=== PATIENT | female | born 1990 | race Caucasian/White ===

== ENCOUNTER 2019-12-13 10:34 | Inpatient (IN) | payer OTHER ==
[~2019-12-13] VITALS: Ht 162.6 cm; Wt 97.1 kg
[~2019-12-13 10:34] MED LIST: METHYLERGONOVINE MALEATE 0.2 MG/ML VIAL IM ONE
[2019-12-13] MEDS ORDERED: RINGERS SOLUTION,LACTATED 1,000 ML IV ONE ×2 (10:41→11:30)
[2019-12-13] MEDS ORDERED: PREN-217 PO (10:44)
[2019-12-13] MEDS ORDERED: CITRIC ACID/SODIUM CITRATE 30 ML SOLUTION UDCUP PO ONE (10:45)
[2019-12-13] MEDS ORDERED: METOCLOPRAMIDE HCL 5 MG/ML 2 ML VIAL IVP ONE (10:45)
[2019-12-13] MEDS ORDERED: [UNRECOGNIZED DRUG - OTHER] PO (10:46)
[2019-12-13 11:40] LABS: BASOPHILS % (AUTO) 0.4 % (0.0-2.0); EOSINOPHILS % (AUTO) 0.5 % (1.0-6.0); HEMATOCRIT 32.4 % (36-46); HEMOGLOBIN 11.2 g/dL (12.0-16.0); LYMPHOCYTES # (AUTO) 1.8 K/uL (1.0-4.8); LYMPHOCYTES % (AUTO) 17.8 % (22.0-44.0); MEAN CORPUSCULAR HGB CONC 34.6 G/dL (31.0-37.0); MEAN CORPUSCULAR VOLUME 87 fL (80-100); MONOCYTES # (AUTO) 0.5 K/uL (0.1-1.0); NEUTROPHILS # (AUTO) 7.6 K/uL (1.8-7.7); NEUTROPHILS % (AUTO) 76.3 % (40.0-70.0); PLATELET COUNT (AUTO)-OB 207 K/uL (150-450); RED BLOOD CELL COUNT(AUTO) 3.74 MIL/uL (4.00-5.20); RED CELL DISTRIBUTION WIDTH 13.4 % (11.5-14.5)
[2019-12-13] MEDS ORDERED: DEXAMETHASONE SOD PHOS 4 MG/ML VIAL IVP ONE (12:00)
[2019-12-13] MEDS ORDERED: LIDOCAINE/PF 2% 5 ML VIAL INJ ONE (12:00)
[2019-12-13] MEDS ORDERED: ONDANSETRON HCL 4 MG/2 ML VIAL IVP ONE (12:00)
[2019-12-13] MEDS ORDERED: KETOROLAC TROMETHAMINE 60 MG/2 ML VIAL IM ONE (12:00)
[2019-12-13] MEDS ORDERED: EPHEDrine SULFATE 50 MG/ML VIAL IM ONE (12:00)
[2019-12-13] MEDS ORDERED: MIDAZOLAM HCL 2 MG/2 ML VIAL ONE (12:06)
[2019-12-13] MEDS ORDERED: MORPHINE SULFATE/PF 1 MG/ML 10 ML AMP ONE (12:06)
[2019-12-13] MEDS ORDERED: FentaNYL CITRATE-PF 100 MCG/2 ML VIAL ONE (12:06)
[2019-12-13] MEDS ORDERED: ONDANSETRON HCL 4 MG/2 ML VIAL ONE (12:07)
[2019-12-13] MEDS ORDERED: BUPIVACAINE HCL/DEX-WATER/PF 0.75% 2 ML AMP ONE (12:07)
[2019-12-13] MEDS ORDERED: NALOXONE HCL 0.4 MG/ML VIAL IVP PRN (13:00)
[2019-12-13] MEDS ORDERED: OxyCODONE HCL/ACETAMINOPHEN 5-325 MG TABLET PO PRN ×3 (13:00→13:30)
[2019-12-13] MEDS ORDERED: ONDANSETRON HCL 4 MG/2 ML VIAL IVP PRN (13:00)
[2019-12-13] MEDS ORDERED: DEXTROSE 5%-0.45% SODIUM CHL 1,000 ML IV SCH (13:19)
[2019-12-13] MEDS ORDERED: GLYCERIN/WITCH HAZEL LEAF 40 PADS JAR TP PRN (13:30)
[2019-12-13] MEDS: OXYTOCIN 20 UNITS/LACT RINGERS 1,000 ML IV SCH (17:39)
[2019-12-13] MEDS: KETOROLAC TROMETHAMINE 30 MG/ML VIAL IVP SCH (17:48)
[2019-12-13 19:02] VITALS: BP 119/68
[2019-12-13] MEDS ORDERED: OXYGEN THERAPY IH SCH ×2 (20:00)
[2019-12-13] MEDS ORDERED: LANOLIN 7 GM OINTMENT TP PRN (22:45)
[2019-12-14] MEDS: KETOROLAC TROMETHAMINE 30 MG/ML VIAL IVP SCH ×3 (00:13→12:00)
[2019-12-14] MEDS: OXYTOCIN 20 UNITS/LACT RINGERS 1,000 ML IV SCH (00:25)
[2019-12-14 07:09] LABS: BASOPHILS % (AUTO) 0.2 % (0.0-2.0); EOSINOPHILS % (AUTO) 0.2 % (1.0-6.0); HEMATOCRIT 32.1 % (36-46); HEMOGLOBIN 10.8 g/dL (12.0-16.0); LYMPHOCYTES % (AUTO) 14.3 % (22.0-44.0); MEAN CORPUSCULAR HEMOGLOBIN 29.2 pg (26.0-34.0); MEAN CORPUSCULAR HGB CONC 33.7 G/dL (31.0-37.0); MEAN CORPUSCULAR VOLUME 87 fL (80-100); MONOCYTES # (AUTO) 0.9 K/uL (0.1-1.0); MONOCYTES % (AUTO) 6.1 % (2.0-9.0); NEUTROPHILS # (AUTO) 11.2 K/uL (1.8-7.7); NEUTROPHILS % (AUTO) 79.2 % (40.0-70.0); PLATELET COUNT (AUTO)-OB 203 K/uL (150-450); RED CELL DISTRIBUTION WIDTH 13.3 % (11.5-14.5)
[2019-12-14] MEDS: MAGNESIUM HYDROXIDE SUSPENSION 30 ML UDCUP PO SCH ×2 (09:40→21:38)
[2019-12-14] MEDS: IBUPROFEN 600 MG TABLET PO PRN (18:01)
[2019-12-15] MEDS: IBUPROFEN 600 MG TABLET PO PRN (03:01)
[2019-12-15] MEDS ORDERED: IBUP-2070 PO (14:10)
== END 2019-12-15 15:15 | disposition home or self-care (01) | DRG 540 ==
LOC: 4S 10:40 → OBSVTOIN 10:40
PROVIDERS: ADMIT Obstetrics & Gynecology; ATTEND Obstetrics & Gynecology
PROC: 10D00Z1 Extraction of Products of Conception, Low, Open Approach (ICD-10-PCS; principal; 2019-12-13)
PROC: 0UB70ZZ Excision of Bilateral Fallopian Tubes, Open Approach (ICD-10-PCS; 2019-12-13)
DX: O34.211 Maternal care for low transverse scar from previous cesarean delivery (principal); Z20.828 Contact with and (suspected) exposure to other viral communicable diseases; Z37.0 Single live birth; Z3A.39 39 weeks gestation of pregnancy
CPT/HCPCS: 86850; 86900; 86901; 87081; 88302; J0690; J1100; J1885; J2210; J2250; J2405; J3010; J3490; J7120